=== PATIENT | female | born 1975 | race Caucasian/White ===

== ENCOUNTER 2016-06-09 11:27 | Emergency (ER) | payer MEDICAID ==
[~2016-06-09] VITALS: Ht 162.6 cm; Wt 75.5 kg
[~2016-06-09 11:27] MED LIST: PNV1TABL43 PO
[2016-06-09 11:32] VITALS: Ht 162.6 cm; Wt 75.5 kg
--- NOTE | 2016-06-09 12:51 | ERD ---
ER Documentation Chief Complaint Date/Time DATE: 06/09/16 TIME: 12:49 Chief Complaint FAST HEART BEAT,DENIES HEART CONDITIONS HPI 40-year-old female who presents with palpitations. The patient describes at least one month of palpitations that are occasional and nonexertional. Occasionally she describes chest pain that is sharp and reproducible when she presses on her chest. She denies history of heart disease, no history of hypertension. The patient is a smoker. She denies pleuritic pain, recent travel or immobilization. She does describe significant social stressors recently and is trying to find a job. No family history of sudden . The patient is asymptomatic currently. She does describe mild cough. ROS All systems reviewed and are negative except as per history of present illness. Medications Home Meds Reported Medications Vit/Fe Fumarate/Fa* ( Vitamin Tablet*) 1 Tab Tablet, 1 TAB PO DAILY, TAB 08/31/14 Allergies Allergies: Coded Allergies: No Known Drug Allergies (Verified Allergy, Mild, 06/09/16) PMhx/Soc Medical and Surgical Hx: pt denies Medical Hx, pt denies Surgical Hx History of Surgery: No Anesthesia Reaction: No Hx Neurological Disorder: No Hx Respiratory Disorders: No Hx Cardiac Disorders: No Hx Psychiatric Problems: No Hx Miscellaneous Medical Probl: No Hx Alcohol Use: No Hx Substance Use: No Hx Tobacco Use: Yes (2-3 CIGARETTES A DAY) Smoking Status: Current every day smoker FmHx Family History: No coronary disease, No diabetes Physical Exam Vitals Vital Signs Date Time Temp Pulse Resp B/P Pulse Ox O2 Delivery O2 Flow Rate FiO2 06/09/16 11:32 98.3 99 18 134/80 98 Physical Exam General: Well developed, well nourished, no acute distress Head: Normocephalic, atraumatic. Eyes: Pupils equally reactive, EOM intact ENT: Moist mucous membranes Neck: Supple, no lymphadenopathy Respiratory: Lungs clear bilaterally, no distress Cardiovascular: RRR, no murmurs, rubs, or gallops Abdominal: Soft, non-tender, non-distended, no peritoneal signs : Deferred MSK: No edema, no unilateral swelling, 5/5 strength Neurologic: Alert and oriented, moving all extremities, normal speech, no focal weakness, no cerebellar signs Skin: No rash Psych: Normal mood Procedures/MDM EKG, MONITORS, & DIAGNOSTIC IMAGING: EKG: I reviewed and interpreted a 12-lead EKG. Rhythm: Normal sinus rhythm Ectopy: None Intervals: No abnormalities ST segments: No elevations or depressions T waves: No contiguous inversions MEDICAL DECISION MAKING: The patient describes at least 1 month palpitations that are nonexertional. She has no murmur, no EKG abnormalities currently. The patient meets the PERC RULE out criteria. Thus, less than 2% risk of pulmonary embolism with better alternative diagnosis. No indication for d-dimer or CT pulmonary angiogram at this time. I believe her symptoms are possibly related to anxiety versus nonspecific palpitations. She may benefit from primary care follow-up as well as Holter monitoring. No evidence of structural heart disease. I recommended chest x-ray imaging and possibly laboratory testing however the patient states that the only thing she wants is an EKG. She understands that this is not a complete evaluation. The patient states that she was just concerned about her EKG. EKG shows no evidence of acute process. The patient states reassurance. I kept the patient and/or family informed of laboratory and diagnostic imaging results throughout the emergency room course. DISPOSITION PLAN: We discussed follow up with the patient's primary care doctor within 24 to 48 hours as needed. We also discussed return to the emergency room for worsening symptoms or worsening condition. The patient should follow-up with a primary care physician as well as car worker helper as needed. Departure Diagnosis: Primary Impression: Palpitations Condition: Stable Patient Instructions: Palpitations Referrals: [facility] YOU HAVE RECEIVED A MEDICAL SCREENING EXAM AND THE RESULTS INDICATE THAT YOU DO NOT HAVE A CONDITION THAT REQUIRES URGENT TREATMENT IN THE EMERGENCY DEPARTMENT. FURTHER EVALUATION AND TREATMENT OF YOUR CONDITION CAN WAIT UNTIL YOU ARE SEEN IN YOUR DOCTORS OFFICE WITHIN THE NEXT 1-2 DAYS. IT IS YOUR RESPONSIBILITY TO MAKE AN APPOINTMENT FOR [facility]. IF YOU HAVE A PRIMARY DOCTOR --you should call your primary doctor and schedule an appointment IF YOU DO NOT HAVE A PRIMARY DOCTOR YOU CAN CALL OUR PHYSICIAN REFERRAL HOTLINE AT IF YOU CAN NOT AFFORD TO SEE A PHYSICIAN YOU CAN CHOSE FROM THE FOLLOWING [facility] [address] [facility] [address] [facility] [address] [facility] [address] [facility]. [facility] [address] [facility]. [facility] [address] [facility]. [facility] YOU HAVE RECEIVED A MEDICAL SCREENING EXAM AND THE RESULTS INDICATE THAT YOU DO NOT HAVE A CONDITION THAT REQUIRES URGENT TREATMENT IN THE EMERGENCY DEPARTMENT. FURTHER EVALUATION AND TREATMENT OF YOUR CONDITION CAN WAIT UNTIL YOU ARE SEEN IN YOUR DOCTORS OFFICE WITHIN THE NEXT 1-2 DAYS. IT IS YOUR RESPONSIBILITY TO MAKE AN APPOINTMENT FOR [facility]. IF YOU HAVE A PRIMARY DOCTOR --you should call your primary doctor and schedule and appointment IF YOU DO NOT HAVE A PRIMARY DOCTOR YOU CAN CALL OUR PHYSICIAN REFERRAL HOTLINE AT . IF YOU CAN NOT AFFORD TO SEE A PHYSICIAN YOU CAN CHOSE FROM THE FOLLOWING [facility] INSTITUTIONS: [facility] [address] [place] [address] [facility] [address] [place] [address] [facility] [address] [place] [address] Additional Instructions: Call your primary care doctor TOMORROW for an appointment during the next 1 WEEK.Tell the stenographer secretary that you were referred from this facility.See the doctor sooner or return here if your condition worsens before your appointment time. BARBARA FERRER MD Jun 09, 2016 12:51
[2016-06-09 12:52] VITALS: BP 128/76; PULSE 86; RESP 18; TEMP 98.3
== END 2016-06-09 12:53 | disposition home or self-care (01) ==
LOC: FTE 11:27
DX: R00.2 Palpitations (principal); F17.210 Nicotine dependence, cigarettes, uncomplicated
CPT/HCPCS: 93005; Z7502

== ENCOUNTER 2016-08-13 23:56 | Emergency (ER) | payer SELFPAY ==
[~2016-08-13] VITALS: Ht 167.6 cm; Wt 71.8 kg
[2016-08-14 00:33] VITALS: Ht 167.6 cm; Wt 71.8 kg
--- NOTE | 2016-08-14 03:28 | ERD ---
ER Documentation Chief Complaint Date/Time DATE: 08/14/16 TIME: 03:26 Chief Complaint C/O BACK PAIN X1 DAY. PT THINKS SHE MIGHT HAVE A UTI STATES DARK URINE HPI 32-year-old female presents here in emergency department for complaints of right flank pain" urine started 3 days ago. Patient describes the pain as sharp pain, 6/10 scale, not better or worse with anything. Patient has history of recurrent UTIs before. Patient denies any fever or chills. Patient denies any nausea or vomiting. Patient denies any abdominal pain. ROS All systems reviewed and are negative except as per history of present illness. Medications Home Meds Reported Medications Vit/Fe Fumarate/Fa* ( Vitamin Tablet*) 1 Tab Tablet, 1 TAB PO DAILY, TAB 08/31/14 Allergies Allergies: Coded Allergies: No Known Drug Allergies (Verified Allergy, Mild, 06/09/16) PMhx/Soc History of Surgery: Yes (tonsillectomy) Anesthesia Reaction: No Hx Neurological Disorder: No Hx Respiratory Disorders: No Hx Cardiac Disorders: No Hx Psychiatric Problems: No Hx Miscellaneous Medical Probl: Yes (recurrent UTIs) Hx Alcohol Use: No Hx Substance Use: No Hx Tobacco Use: Yes (2-3 CIGARETTES A DAY) Smoking Status: Current every day smoker FmHx Family History: other (htn) Physical Exam Vitals Vital Signs Date Time Temp Pulse Resp B/P Pulse Ox O2 Delivery O2 Flow Rate FiO2 08/14/16 00:33 98.6 90 20 113/64 97 Physical Exam GENERAL: The patient is well developed and appropriate for usual state of health, in no apparent distress. CHEST: Clear to auscultation bilaterally. There are no rales, wheezes or rhonchi. HEART: Regular rate and rhythm. No murmurs, clicks, rubs or gallops. No S3 or S4. ABDOMEN: Soft, nontender and nondistended. Good bowel sounds. No rebound or guarding. No gross peritonitis. No gross organomegaly or masses. No Modi sign or McBurney point tenderness. BACK: No midline tenderness, right flank tenderness noted. EXTREMITIES: Equal pulses bilaterally. There is no peripheral clubbing, cyanosis or edema. No focal swelling or erythema. Full range of motion. Grossly neurovascularly intact. NEURO: Alert and oriented. Cranial nerves 2-12 intact. Motor strength in all 4 extremities with 5/5 strength. Sensation grossly intact. Normal speech and gait. SKIN: There is no apparent rash or petechia. The skin is warm and dry. HEMATOLOGIC AND LYMPHATIC: There is no evidence of excessive bruising or lymphedema. No gross cervical, axillary, or inguinal lymphadenopathy. Result Diagram: 08/14/168 08/14/168 Results 24 hrs Laboratory Tests Test 08/14/16 03:08 Alanine Aminotransferase (ALT/SGPT) 28IU/L Albumin 4.2g/dl Albumin/Globulin Ratio 1.27 Alkaline Phosphatase 72IU/L Anion Gap 18 Aspartate Amino Transf (AST/SGOT) 19IU/L Basophils # 0.110^3/ul Basophils % 0.4% Blood Urea Nitrogen 11mg/dl Calcium Level 9.3mg/dl Carbon Dioxide Level 29mmol/L Chloride Level 102mmol/L Creatinine 0.77mg/dl Direct Bilirubin 0.00mg/dl Eosinophils # 0.210^3/ul Eosinophils % 1.9% Globulin 3.30g/dl Glucose Level 83mg/dl Hematocrit 40.7% Hemoglobin 13.7g/dl Indirect Bilirubin 0.4mg/dl Lipase 134U/L Lymphocytes # 4.810^3/ul Lymphocytes % 41.0% Mean Corpuscular Hemoglobin 32.0pg Mean Corpuscular Hemoglobin Concent 33.7g/dl Mean Corpuscular Volume 95.1fl Mean Platelet Volume 11.3fl Monocytes # 0.610^3/ul Monocytes % 5.3% Neutrophils # 6.010^3/ul Neutrophils % 51.1% Nucleated Red Blood Cells # 0.010^3/ul Nucleated Red Blood Cells % 0.0/100WBC Platelet Count 19858^3/UL Potassium Level 3.5mmol/L Red Blood Count 4.2810^6/ul Red Cell Distribution Width 12.4% Sodium Level 145mmol/L Total Bilirubin 0.4mg/dl Total Protein 7.5g/dl Urine Bilirubin NEGATIVE Urine Clarity CLEAR Urine Color LT. YELLOW Urine Glucose NEGATIVE% Urine Hemoglobin NEGATIVE Urine Ketones NEGATIVE Urine Leukocyte Esterase NEGATIVE Urine Nitrite NEGATIVE Urine Specific [place] 1.010 Urine Total Protein NEGATIVE Urine Urobilinogen 0.2 E.U./dL Urine pH 6.0 White Blood Count 11.810^3/ul PROCEDURE: CT ABDOMEN/PELVIS WITHOUT CONTRAST CLINICAL INDICATION: 40-year-old female with abdominal pain. TECHNIQUE: The study was performed utilizing a [employer] VCT 64-slice CT scanner. Direct axial sections were obtained through the abdomen and pelvis without the use of intravenous contrast material. Sagittal and coronal reformations were obtained. Automated exposure control and iterative reconstruction techniques were utilized for this examination. The images were reviewed on a PACS workstation. CTD/vol = 12.2 mGy; Total Exam DLP = 691.5 mGy -cm. COMPARISON: CT abdomen/pelvis February 02, 2014. FINDINGS: There is mild scarring within the partially visualized right middle lobe. There is no evidence for significant pleural effusion. The liver has a normal contour and appears enlarged with maximal length of approximately 26.0 cm but without focal areas of abnormal density. No intrahepatic nor extrahepatic biliary ductal dilatation is seen. The gallbladder demonstrates no wall thickening nor pericholecystic fluid. No biliary stones are evident. The pancreas is without areas of abnormal attenuation. The spleen is identified and has a normal size without abnormal density. The adrenal glands are unremarkable. The kidneys are without abnormal density. No hydroureteronephrosis nor nephroureterolithiasis is evident. The urinary bladder contains urine. There is retained stool throughout the colon without gross bowel obstruction. The appendix is visualized and is without abnormal thickening or surrounding inflammatory reaction. The uterus is anteflexed. There is a left ovarian cyst present measuring 2.8 x 1.8 x 2.1 cm. There is minimal pelvic free fluid. The aortoiliac vessels are without aneurysmal dilatation. Degenerative changes are seen within the spine most prominently within the lower thoracic region with vacuum discs at T8-9 and T9-10. IMPRESSION: 1. Retained stool throughout the colon without gross bowel obstruction. 2. No CT evidence for appendicitis. 3. Left ovarian cyst. 4. Minimal pelvic free fluid. 6. Degenerative changes with predominantly within the lower thoracic region. .Nicola Barragan MD, MD Date Time Electronically viewed and signed by .Nicola Barragan MD, MD on 08/14/2016 03:55 .M/ CC: RANCHO DENNIS NP Procedures/MDM Medical Decision Making: Patient back pain nonspecific at this time, no urinary tract infection, no kidney stones noted. May have passed a stone. Patient also has constipation, can be also be causing the pain. Patient's back pain can be also musculoskeletal pain. There is low suspicion for abdominal emergencies at this time. Patients abdominal exam is normal at this time. Patients radiology exam does not show any abdominal emergencies at this time. There is low suspicion for appendicitis, cholecystitis, abdominal aortic aneurysms or peritonitis at this time. There is low suspicion for sepsis. Patient appears well and is hemodynamically stable. Disposition: Home. Condition: Stable Prescription ibuprofen, tramadol, Colace and MiraLAX Instructions: Patient is advised to take medications as prescribed. Patient is advised to rest, increase fluid intake and do brat diet for next 1-2 days and progress as tolerated. Patient is advised that if symptoms are worse, severe abdominal pain, uncontrolled vomiting, high fever, severe flank pain, worst signs and symptoms, to return to the emergency department immediately. Otherwise, patient can follow up with primary care doctor in 5-7 days. Departure Diagnosis: Primary Impression: Back pain Back pain location: low back pain Chronicity: acute Back pain laterality: right Sciatica presence: without sciatica Qualified Code: M54.5 - Acute right-sided low back pain without sciatica Condition: Stable Patient Instructions: Back Pain (Acute Or Chronic) RANCHO DENNIS NP Aug 14, 2016 03:28
[2016-08-14 03:34] LABS: ADD SCAN DIFF NO
[2016-08-14 03:37] LABS: BASOPHIL # 0.1 10^3/ul (0.0-0.1); BASOPHILS % 0.4 % (0.0-2.0); EOSINOPHILS # 0.2 10^3/ul (0.0-0.5); EOSINOPHILS % 1.9 % (0.0-7.0); HEMATOCRIT 40.7 % (37.0-47.0); HEMOGLOBIN 13.7 g/dl (12.0-16.0); LYMPHOCYTES # 4.8 10^3/ul (0.8-2.9); MEAN CORPUSCULAR HGB CONC 33.7 g/dl (32.0-37.0); MEAN CORPUSCULAR VOLUME 95.1 fl (82.0-101.0); MEAN PLATELET VOLUME 11.3 fl (7.4-10.4); MONOCYTE # 0.6 10^3/ul (0.3-0.9); MONOCYTES % 5.3 % (0.0-11.0); NEUTROPHILS % 51.1 % (39.0-77.0); PLATELET COUNT 307 10^3/UL (140-415); RED BLOOD COUNT 4.28 10^6/ul (4.20-5.40); RED CELL DISTRIBUTION WIDTH 12.4 % (11.5-14.5); WHITE BLOOD COUNT 11.8 10^3/ul (4.8-10.8)
[2016-08-14 03:44] LABS: ALBUMIN 4.2 g/dl (3.3-4.9); POTASSIUM 3.5 mmol/L (3.5-5.1)
[2016-08-14 03:46] LABS: BILIRUBIN,INDIRECT 0.4 mg/dl (0-1.1); BILIRUBIN,TOTAL 0.4 mg/dl (0.2-1.3); CREATININE 0.77 mg/dl (0.44-1.00)
[2016-08-14 03:47] LABS: ALBUMIN/GLOBULIN RATIO 1.27; CALCIUM 9.3 mg/dl (8.4-10.2); TOTAL PROTEIN 7.5 g/dl (6.1-8.1)
--- NOTE | 2016-08-14 03:55 | RADRPT ---
PROCEDURE: CT ABDOMEN/PELVIS WITHOUT CONTRAST CLINICAL INDICATION: 40-year-old female with abdominal pain. TECHNIQUE: The study was performed utilizing a [employer] VCT 64-slice CT scanner. Direct axia l sections were obtained through the abdomen and pelvis without the use of intravenous contrast mate rial. Sagittal and coronal reformations were obtained. Automated exposure control and iterative tong nstruction techniques were utilized for this examination. The images [facility] CTD/vol = 12.2 mGy; Total Exam DLP = 691.5 mGy-cm. COMPARISON: CT abdomen/pelvis February 02, 2014. FINDINGS: There is mild scarring within the partially visualized right middle lobe. There is no evidence for significant pleural effusion. The liver has a normal contour and appears enlarged with maximal martha th of approximately 26.0 cm but without focal areas of abnormal density. No intrahepatic nor extrahe patic biliary ductal dilatation is seen. The gallbladder demonstrates no wall thickening nor pericho lecystic fluid. No biliary stones are evident. The pancreas is without areas of abnormal attenuation . The spleen is identified and has a normal size without abnormal density. The adrenal glands are u nremarkable. The kidneys are without abnormal density. No hydroureteronephrosis nor nephroureterolit hiasis is evident. The urinary bladder contains urine. There is retained stool throughout the colon without gross bowel obstruction. The appendix is visualized and is without abnormal thickening or chambers rrounding inflammatory reaction. The uterus is anteflexed. There is a left ovarian cyst present measuring 2.8 x 1.8 x 2.1 cm. There is minimal pelvic free fluid. The aortoiliac vessels are witho ut aneurysmal dilatation. Degenerative changes are seen within the spine most prominently within the lower thoracic region with vacuum discs at T8-9 and T9-10. IMPRESSION: 1. Retained stool throughout the colon without gross bowel obstruction. 2. No CT evidence for appendicitis. 3. Left ovarian cyst. 4. Minimal pelvic free fluid. 6. Degenerative changes with predominantly within the lower thoracic region. .Nicola Barragan MD, Date Time Electronically viewed and signed by .Nicola Barraagn MD, on 08/14/2016 03:55 .Kristine
[2016-08-14 04:12] LABS: ADD UMIC NO; URINE BILIRUBIN (Dip) NEGATIVE (NEGATIVE); URINE BLOOD (Dip) NEGATIVE (NEGATIVE); URINE COLOR LT. YELLOW (YELLOW); URINE GLUCOSE (Dip) NEGATIVE (NEGATIVE); URINE KETONES (Dip) NEGATIVE (NEGATIVE); URINE LEUKOCYTE ESTERASE (Dip) NEGATIVE (NEGATIVE); URINE NITRITE (Dip) NEGATIVE (NEGATIVE); URINE TOTAL PROTEIN (Dip) NEGATIVE (NEGATIVE); URINE UROBILINOGEN (Dip) 0.2 E.U./dL (0.1-1.0)
[2016-08-14] MEDS ORDERED: IBUP-1542 PO (04:26)
[2016-08-14] MEDS ORDERED: TRAM50TA2 PO (04:26)
[2016-08-14] MEDS ORDERED: DOCU-144 PO (04:26)
[2016-08-14] MEDS ORDERED: POLY17PO6 PO (04:26)
== END 2016-08-14 04:55 | disposition home or self-care (01) ==
LOC: FTE 23:56
DX: M54.5 Low back pain (principal); F17.210 Nicotine dependence, cigarettes, uncomplicated
CPT/HCPCS: 36415; 74176; 80053; 81003; 83690; 85025

== ENCOUNTER 2016-09-21 22:56 | Emergency (ER) | payer SELFPAY ==
[~2016-09-21] VITALS: Ht 165.1 cm; Wt 73.5 kg
[~2016-09-21 22:56] MED LIST changes: +DOCU-144 PO; +IBUP-1542 PO; +POLY17PO6 PO; +TRAM50TA2 PO
[2016-09-21 23:04] VITALS: Ht 165.1 cm; Wt 73.5 kg
--- NOTE | 2016-09-22 00:23 | ERD ---
ER Documentation Chief Complaint Date/Time DATE: 09/22/16 TIME: 00:21 Chief Complaint painful/burning urination x 2 weeks, states 6 weeks . denies vb HPI 40-year-old female presents to emergency department for complaints of pelvic pain really into the lower back area for 2 weeks now, patient is approximately 6 weeks , was given Saturday by another hospital, was told to not have any intrauterine noted, possible ectopic , had positive test, was complaining of pelvic pain and cramping pain radiating to the back 6/10 scale, patient denies any vaginal bleeding. Patient is complaining of dysuria, burning pain, 4/10 scale, accompanying the other symptoms. ROS All systems reviewed and are negative except as per history of present illness. Medications Home Meds Active Scripts Docusate Sodium* (Colace*) 100 Mg Capsule, 100 MG PO TID, #30 CAP Prov:RANCHO DENNIS CAM MAKER 08/14/16 Polyethylene Glycol* (Miralax*) 17 Gm Powd.pack, 17 GM PO DAILY, #7 Prov:RANCHO DENNIS CAM MAKER 08/14/16 Tramadol HCl (Tramadol HCl) 50 Mg Tablet, 50 MG PO Q6 Y for SEVERE PAIN LEVEL 7- 10, #20 TAB Prov:RANCHO DENNIS CAM MAKER 08/14/16 Ibuprofen* (Motrin*) 600 Mg Tab, 600 MG PO Q6H Y for PAIN AND OR ELEVATED TEMP, #30 TAB Prov:RANCHO DENNIS CAM MAKER 08/14/16 Reported Medications Vit/Fe Fumarate/Fa* ( Vitamin Tablet*) 1 Tab Tablet, 1 TAB PO DAILY, TAB 08/31/14 Allergies Allergies: Coded Allergies: No Known Drug Allergies (Verified Allergy, Mild, 09/21/16) PMhx/Soc History of Surgery: Yes (tonsillectomy) Anesthesia Reaction: No Hx Neurological Disorder: No Hx Respiratory Disorders: No Hx Cardiac Disorders: No Hx Psychiatric Problems: No Hx Miscellaneous Medical Probl: Yes (recurrent UTIs) Hx Alcohol Use: No Hx Substance Use: No Hx Tobacco Use: Yes (2-3 CIGARETTES A DAY) Smoking Status: Current every day smoker FmHx Family History: No coronary disease, No diabetes, No other Physical Exam Vitals Vital Signs Date Time Temp Pulse Resp B/P Pulse Ox O2 Delivery O2 Flow Rate FiO2 09/21/16 23:04 97.6 81 20 109/66 97 Physical Exam GENERAL: The patient is well developed and appropriate for usual state of health, in no apparent distress. CHEST: Clear to auscultation bilaterally. There are no rales, wheezes or rhonchi. HEART: Regular rate and rhythm. No murmurs, clicks, rubs or gallops. No S3 or S4. ABDOMEN: Soft, nontender and nondistended. Good bowel sounds. No rebound or guarding. No gross peritonitis. No gross organomegaly or masses. No Modi sign or McBurney point tenderness. BACK: No midline or flank tenderness. EXTREMITIES: Equal pulses bilaterally. There is no peripheral clubbing, cyanosis or edema. No focal swelling or erythema. Full range of motion. Grossly neurovascularly intact. NEURO: Alert and oriented. Cranial nerves 2-12 intact. Motor strength in all 4 extremities with 5/5 strength. Sensation grossly intact. Normal speech and gait. SKIN: There is no apparent rash or petechia. The skin is warm and dry. HEMATOLOGIC AND LYMPHATIC: There is no evidence of excessive bruising or lymphedema. No gross cervical, axillary, or inguinal lymphadenopathy. Result Diagram: 09/22/16 0015 09/22/16 0015 Results 24 hrs Laboratory Tests Test 09/21/16 23:55 09/22/16 00:15 Urine Color LT. YELLOW Urine Clarity CLEAR Urine pH 5.5 Urine Specific [place] 1.020 Urine Ketones NEGATIVE Urine Nitrite POSITIVE Urine Bilirubin NEGATIVE Urine Urobilinogen 0.2 E.U./dL Urine Leukocyte Esterase NEGATIVE Urine Microscopic RBC 0-2/HPF Urine Microscopic WBC 2-5/HPF Urine Squamous Epithelial Cells FEW Urine Bacteria MANY Urine Hemoglobin TRACE Urine Glucose NEGATIVE% Urine Total Protein NEGATIVE White Blood Count 12.610^3/ul Red Blood Count 4.1210^6/ul Hemoglobin 13.2g/dl Hematocrit 38.3% Mean Corpuscular Volume 93.0fl Mean Corpuscular Hemoglobin 32.0pg Mean Corpuscular Hemoglobin Concent 34.5g/dl Red Cell Distribution Width 12.3% Platelet Count 55533^3/UL Mean Platelet Volume 11.3fl Neutrophils % 50.0% Lymphocytes % 42.2% Monocytes % 5.1% Eosinophils % 2.0% Basophils % 0.5% Nucleated Red Blood Cells % 0.0/100WBC Neutrophils # 6.310^3/ul Lymphocytes # 5.310^3/ul Monocytes # 0.610^3/ul Eosinophils # 0.310^3/ul Basophils # 0.110^3/ul Nucleated Red Blood Cells # 0.010^3/ul Sodium Level 137mmol/L Potassium Level 3.7mmol/L Chloride Level 104mmol/L Carbon Dioxide Level 24mmol/L Anion Gap 13 Blood Urea Nitrogen 8mg/dl Creatinine 0.54mg/dl Glucose Level 107mg/dl Calcium Level 9.4mg/dl Total Bilirubin 0.0mg/dl Direct Bilirubin 0.00mg/dl Indirect Bilirubin 0.0mg/dl Aspartate Amino Transf (AST/SGOT) 16IU/L Alanine Aminotransferase (ALT/SGPT) 27IU/L Alkaline Phosphatase 58IU/L Total Protein 7.2g/dl Albumin 4.1g/dl Globulin 3.10g/dl Albumin/Globulin Ratio 1.32 Beta HCG, Quantitative 1714.9mIU/ml PROCEDURE: ULTRASOUND OBSTETRICAL CLINICAL INDICATION: 40-year-old female with pelvic pain and vaginal bleeding. TECHNIQUE: Multiple sonographic images of the pelvis were obtained. The images were reviewed on a PACS workstation. COMPARISON: None. FINDINGS: There is a single intrauterine gestation. There is a small subchorionic hemorrhage measuring 7 x 3 mm. The mean sac diameter is 0.45 cm. This yields an estimated gestational age of 5 weeks and 0 days. There is a yolk sac identified. There is no evidence for a pole. There is mild free fluid within the cul-de-sac. The right ovary has a normal echotexture and measures 3.5 x 1.5 x 2.1 cm. The left ovary has a normal echotexture and measures 4.1 x 2.7 cm. There is a hemorrhagic left ovarian cyst measuring 1.5 x 2.0 x 1.4 cm. There is normal flow to the ovaries bilaterally. No adnexal masses are noted. IMPRESSION: 1. Single early intrauterine gestation of approximately 5 weeks 0 days with small subchorionic hemorrhage and without evidence for a pole at this time. Clinical correlation follow-up ultrasound is suggested. 2. Hemorrhagic left ovarian cyst. 3. Mild free fluid. .Nicola Barragan MD, MD Date Time Electronically viewed and signed by .Nicola Barragan MD, MD on 09/22/2016 01:16 .M/ CC: RANCHO DENNIS [employer]KER Procedures/MDM Medical Decision Making: Patients pain most likely is consistent from the ovarian cyst noted in the ultrasound, patient also has a 5 week , with subchorionic hemorrhage could be causing the pain also. Patient does not show any evidence of hypovolemic shock. Patients hemoglobin and hematocrit is stable. There is low suspicion for ectopic . NICK results show a basic with ovarian cyst, no symptoms of ectopic . BetaHCG Quantitative is appropriate for the early The patient is Rh+, does not need RhoGAM this time. There is no signs of symptoms of dehydration. There is low suspicion for sepsis. Patient appears well and is hemodynamically stable. She also has urinary tract infection and will be treated. Disposition: Home. Condition: Stable Disposition: Keflex, Tylenol Instructions: Patient is advised to do bed rest, avoid heavy lifting, and avoid having sex until cleared by OB doctor. Patient is advised to follow up with OB doctor or here at the ER in 48 hours for reevaluation of symptoms, repeat beta HCG quantitative and ultrasound. Patient is advised that is symptoms are worst, severe bleeding, dizziness, severe abdominal pain, fever, worst signs and symptoms to return to the emergency department immediately. Departure Diagnosis: Primary Impression: Ovarian cyst Laterality: left Qualified Code: N83.202 - Cyst of left ovary Additional Impressions: Intrauterine Subchorionic hemorrhage Fetus number: single or unspecified fetus Trimester: unspecified trimester Qualified Code: O41.8X90 - Subchorionic hemorrhage, unspecified trimester, not applicable or unspecified fetus UTI (urinary tract infection) Urinary tract infection type: acute cystitis Hematuria presence: without hematuria Qualified Code: N30.00 - Acute cystitis without hematuria Condition: Stable Patient Instructions: Ovarian Cyst, Understanding Urinary Tract Infections ( UTIs), Vaginal Bleed in Additional Instructions: Patient is advised to do bed rest, avoid heavy lifting, and avoid having sex until cleared by OB doctor. Patient is advised to follow up with OB doctor or here at the ER in 48 hours for reevaluation of symptoms, repeat beta HCG quantitative and ultrasound. Patient is advised that is symptoms are worst, severe bleeding, dizziness, severe abdominal pain, fever, worst signs and symptoms to return to the emergency department immediately. RANCHO DENNIS NP Sep 22, 2016 00:23
[2016-09-22 00:33] LABS: ADD SCAN DIFF NO
[2016-09-22 00:36] LABS: ABNORMAL IP MESSAGE 1; BASOPHIL # 0.1 10^3/ul (0.0-0.1); BASOPHILS % 0.5 % (0.0-2.0); EOSINOPHILS # 0.3 10^3/ul (0.0-0.5); HEMATOCRIT 38.3 % (37.0-47.0); HEMOGLOBIN 13.2 g/dl (12.0-16.0); LYMPHOCYTES # 5.3 10^3/ul (0.8-2.9); LYMPHOCYTES % 42.2 % (15.0-51.0); MEAN CORPUSCULAR HGB CONC 34.5 g/dl (32.0-37.0); MEAN PLATELET VOLUME 11.3 fl (7.4-10.4); MONOCYTE # 0.6 10^3/ul (0.3-0.9); MONOCYTES % 5.1 % (0.0-11.0); NEUTROPHIL # 6.3 10^3/ul (1.6-7.5); PLATELET COUNT 297 10^3/UL (140-415); RED BLOOD COUNT 4.12 10^6/ul (4.20-5.40); RED CELL DISTRIBUTION WIDTH 12.3 % (11.5-14.5); WHITE BLOOD COUNT 12.6 10^3/ul (4.8-10.8)
[2016-09-22 00:46] LABS: ADD UMIC YES; URINE BILIRUBIN (Dip) NEGATIVE (NEGATIVE); URINE BLOOD (Dip) TRACE (NEGATIVE); URINE COLOR LT. YELLOW (YELLOW); URINE GLUCOSE (Dip) NEGATIVE (NEGATIVE); URINE KETONES (Dip) NEGATIVE (NEGATIVE); URINE LEUKOCYTE ESTERASE (Dip) NEGATIVE (NEGATIVE); URINE NITRITE (Dip) POSITIVE (NEGATIVE); URINE TOTAL PROTEIN (Dip) NEGATIVE (NEGATIVE); URINE UROBILINOGEN (Dip) 0.2 E.U./dL (0.1-1.0)
[2016-09-22 00:50] LABS: ALBUMIN 4.1 g/dl (3.3-4.9); ALBUMIN/GLOBULIN RATIO 1.32; CALCIUM 9.4 mg/dl (8.4-10.2); CREATININE 0.54 mg/dl (0.44-1.00); POTASSIUM 3.7 mmol/L (3.5-5.1); TOTAL PROTEIN 7.2 g/dl (6.1-8.1)
[2016-09-22 01:04] LABS: URINE RBCS 0-2 /HPF (0)
[2016-09-22 01:05] LABS: BACTERIA,URINE MANY; SQUAMOUS EPITHELIAL CELL,UR FEW
--- NOTE | 2016-09-22 01:16 | RADRPT ---
PROCEDURE: ULTRASOUND OBSTETRICAL CLINICAL INDICATION: 40-year-old female with pelvic pain and vaginal bleeding. TECHNIQUE: Multiple sonographic images of the pelvis were obtained. The images were reviewed on a PACS workstation. COMPARISON: None. FINDINGS: There is a single intrauterine gestation. There is a small subchorionic hemorrhage measuring 7 x 3 m m. The mean sac diameter is 0.45 cm. This yields an estimated gestational age of 5 weeks and 0 days. There is a yolk sac identified. There is no evidence for a pole. There is mild free fluid w ithin the cul-de-sac. The right ovary has a normal echotexture and measures 3.5 x 1.5 x 2.1 cm. The left ovary has a normal echotexture and measures 4.1 x 2.7 cm. There is a hemorrhagic left ovarian cyst measuring 1.5 x 2.0 x 1.4 cm. There is normal flow to the ovaries bilaterally. No adnexal ma sses are noted. IMPRESSION: 1. Single early intrauterine gestation of approximately 5 weeks 0 days with small subchorionic hemo rrhage and without evidence for a pole at this time. Clinical correlation follow-up ultrasoun d is suggested. 2. Hemorrhagic left ovarian cyst. 3. Mild free fluid. .Nicola Barragan MD, Date Time Electronically viewed and signed by .Nicola Barragan MD, on 09/22/2016 01:16 .M/
[2016-09-22] MEDS ORDERED: CEPH-443 PO (01:31)
[2016-09-22] MEDS ORDERED: ACET500C5 PO (01:31)
[2016-09-22 01:55] VITALS: BP 112/68; PULSE 78; RESP 20; TEMP 97.6
== END 2016-09-22 01:55 | disposition home or self-care (01) ==
LOC: FTE 22:56
DX: O34.81 Maternal care for other abnormalities of pelvic organs, first trimester (principal); O41.8X10 Other specified disorders of amniotic fluid and membranes, first trimester, not applicable or unspecified; O23.11 Infections of bladder in pregnancy, first trimester; O99.331 Smoking (tobacco) complicating pregnancy, first trimester; F17.210 Nicotine dependence, cigarettes, uncomplicated; R10.2 Pelvic and perineal pain; Z3A.01 Less than 8 weeks gestation of pregnancy
CPT/HCPCS: 36415; 76801; 76817; 80053; 81001; 81003; 84702; 85025; 86900; 86901

== ENCOUNTER 2018-03-20 14:25 | Emergency (ER) | END 2018-03-20 15:23 | disposition home or self-care (01) ==

== ENCOUNTER 2018-04-24 15:16 | Emergency (ER) | END 2018-04-24 18:17 | disposition home or self-care (01) ==

== ENCOUNTER 2018-05-12 12:08 | Emergency (ER) | END 2018-05-12 15:18 | disposition home or self-care (01) ==